=== PATIENT | male | born 1985 | race Caucasian/White ===

== ENCOUNTER → 2017-05-09 | Outpatient (CLI) | payer BC ==
[2017-05-09 11:21] LABS: Basophils # (A) 0.1 k/uL (0-0.2); Basophils % (A) 1 %; Eosinophils # (A) 0.2 k/uL (0-0.7); Eosinophils % (A) 2 %; HCT 51.3 % (39.0-53.0); HGB 16.8 gm/dL (13.0-17.5); Lymphocytes # (A) 2.3 k/uL (1.0-4.8); Lymphocytes % (A) 23 %; MCH 31.1 pg (25.0-35.0); MCHC 32.8 g/dL (31.0-37.0); MCV 94.8 fL (80.0-100.0); Mean Platelet Volume 7.2; Monocytes # (A) 0.7 k/uL (0-1.0); Monocytes % (A) 7 %; Neutrophils # (A) 6.6 k/uL (1.3-7.7); Neutrophils % (A) 66 %; Platelet Count 216 k/uL (150-450); RBC 5.41 m/uL (4.30-5.90); RDW 12.4 % (11.5-15.5); WBC 10.1 k/uL (3.8-10.6)
== END | disposition home or self-care (01) ==
LOC: LABPAT 10:46
PROVIDERS: ATTEND Orthopaedic Surgery
DX: Z01.812 Encounter for preprocedural laboratory examination (principal)
CPT/HCPCS: 36415; 85025

== ENCOUNTER 2017-05-10 10:56 | Day surgery (SDC) | payer OTHER, BC ==
[2017-05-08 16:01] VITALS: BMI 28.3
[~2017-05-10 10:56] MED LIST: ALPRAZolam 0.5 MG TAB PO PRN; DEXAMETHASONE SOD PHOSPHATE 10 MG/ML 1 ML VIAL IV ONE; LACTATED RINGERS 1,000 ML IV SCH; ONDANSETRON 4 MG/2 ML VIAL IVP ONE; ceFAZolin IN SWFI 2 GM/20 ML SYRINGE IVP ONE
[2017-05-10 11:59] VITALS: RESP 16
[2017-05-10] MEDS ORDERED: LIDOCAINE 1% 20 ML VIAL (10MG/ML) FOR IV START INTRADERMA ONE (12:03)
[2017-05-10] MEDS ORDERED: fentaNYL (PF) 50 MCG/ML 2 ML AMP IVP ONE (12:22)
[2017-05-10] MEDS ORDERED: SUCCINYLCHOLINE CHLORIDE 100 MG/5 ML SYR IV ONE (13:19)
[2017-05-10] MEDS ORDERED: HYDROmorphone (PF) 1 MG/ML ONE (13:19)
[2017-05-10] MEDS ORDERED: fentaNYL (PF) 50 MCG/ML 2 ML AMP ONE (13:19)
[2017-05-10] MEDS ORDERED: MIDAZOLAM 2 MG/2 ML VIAL ONE (13:19)
[2017-05-10] MEDS ORDERED: PROPOFOL 10 MG/ML 20 ML VIAL IV ONE (13:19)
--- NOTE | 2017-05-10 15:46 | FL ---
Fluoroscopy HISTORY: Open reduction internal fixation left radius 13 seconds fluoroscopy time supplied to the referring clinician. 80 intraoperative C-arm images docu ment the procedure. See dictated report from orthopedic surgery.
--- NOTE | 2017-05-10 15:47 | XR ---
Limited left forearm HISTORY: Open reduction internal fixation 2 views of the left forearm are submitted on a total 6 intraoperative images documenting the procedur e.
[2017-05-10] MEDS ORDERED: LACTATED RINGERS 1,000 ML IV ONE (16:21)
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
[2017-05-10 17:24] VITALS: TEMP 99.4
[2017-05-10 18:31] VITALS: BP 169/96; PULSE 73
--- NOTE | 2017-05-11 08:59 | FL ---
EXAMINATION TYPE: FL guidance operating room DATE OF EXAM: 05/10/2017 HISTORY: Flouroscopy time 13 seconds of fluoroscopy provided. IMPRESSION: 1. Fluoroscopy time.
--- NOTE | 2017-05-11 09:12 | XR ---
EXAMINATION TYPE: XR clavicle LT DATE OF EXAM: 05/10/2017 COMPARISON: NONE HISTORY: Intraoperative ORIF TECHNIQUE: One view submitted FINDINGS: Postsurgical change involving the left clavicle are in near anatomic alignment IMPRESSION: Postoperative change
== END 2017-05-10 19:02 | disposition home or self-care (01) ==
LOC: OR 10:56
PROVIDERS: ATTEND Orthopaedic Surgery
DX: S52.322A Displaced transverse fracture of shaft of left radius, initial encounter for closed fracture (principal); S42.022A Displaced fracture of shaft of left clavicle, initial encounter for closed fracture; V86.92XA Unspecified occupant of snowmobile injured in nontraffic accident, initial encounter; Y93.29 Activity, other involving ice and snow; J45.909 Unspecified asthma, uncomplicated; F17.210 Nicotine dependence, cigarettes, uncomplicated; Z79.891 Long term (current) use of opiate analgesic
CPT/HCPCS: 73000; 73090; 25515; 23515; J2250; J1100; J2405; J3010; J1170; J0330; J2704; J0690

== ENCOUNTER → 2018-03-09 | Day surgery (SDC) | payer BC, OTHER ==
[2018-03-07 16:20] VITALS: BMI 27.9
[~2018-03-09] MED LIST changes: -ALPRAZolam 0.5 MG TAB PO PRN; +ATROPINE SULFATE 0.1 MG/ML 10ML SYRINGE ONE; +HYDROcodone/APAP 10-325MG 1 EACH TAB PO ONE; +LACTATED RINGERS 1,000 ML IV ONE; +LIDOCAINE 1% 20 ML VIAL (10MG/ML) FOR IV START INTRADERMA PRN; +LIDOCAINE 1% INJ 10MG/ML (20 ML MDV) ONE; +MIDAZOLAM (PF) 2 MG/2 ML VIAL IV PRN; +MIDAZOLAM 2 MG/2 ML VIAL ONE; +PROPOFOL 10 MG/ML 20 ML VIAL IV ONE; +SUCCINYLCHOLINE CHLORIDE 100 MG/5 ML SYR IV ONE; +ePHEDrine SULFATE/0.9% NACL/PF 50 MG/5 ML SYRINGE IV ONE; +fentaNYL (PF) 50 MCG/ML 2 ML AMP IV PRN; +fentaNYL (PF) 50 MCG/ML 2 ML AMP ONE
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
[2018-03-09] MEDS: HYDROmorphone 1 MG/ML 1 ML SYRINGE IVP PRN ×4 (15:31→15:51)
[2018-03-09 15:37] VITALS: TEMP 97.3
[2018-03-09 15:51] VITALS: RESP 16
[2018-03-09 16:09] VITALS: PULSE 61
[2018-03-09 16:23] VITALS: BP 141/80
== END | disposition home or self-care (01) ==
LOC: OR 10:46
PROVIDERS: ATTEND Orthopaedic Surgery
DX: Z47.2 Encounter for removal of internal fixation device (principal); S42.022A Displaced fracture of shaft of left clavicle, initial encounter for closed fracture; F17.210 Nicotine dependence, cigarettes, uncomplicated; Z91.19 Patient's noncompliance with other medical treatment and regimen
CPT/HCPCS: 20680; J2250; J1100; J2405; J2001; J0461; J3010; J1170; J0330; J2704; J0690